=== PATIENT | female | born 1955 | race Two or more races ===

== ENCOUNTER → 2018-02-02 | Emergency (ER) | payer OTHER ==
[~2018-02-02] VITALS: Ht 160 cm; Wt 59.0 kg
[~2018-02-02] MED LIST: CIPRO500 MG PO; CLONAZEPAM1 MG; EFFEXOR XR75 MG; FLAGYL500MG PO; IMITREX100 MG; INTESTINEX1 CA1 PO; LISINOPRIL5 MG; LORAZEPAM1 MG; METFORMIN HCL500 MG; PROTONIX20 MG; RANITIDINE HCL300 MG; SEROQUEL200 MG
== END | disposition home or self-care (01) ==
LOC: ER 14:07
DX: K57.30 Diverticulosis of large intestine without perforation or abscess without bleeding (principal); R10.32 Left lower quadrant pain

== ENCOUNTER 2019-02-10 08:55 | Outpatient (CLI) | payer OTHER | END 2019-02-10 09:08 | disposition home or self-care (01) | LOC: TOM 08:55 | DX: K56.600 Partial intestinal obstruction, unspecified as to cause (principal) ==

== ENCOUNTER → 2020-08-10 | Outpatient (CLI) | payer OTHER | END | disposition home or self-care (01) | LOC: MRI 08:36 | PROVIDERS: ATTEND Surgery | DX: R10.30 Lower abdominal pain, unspecified (principal); R19.4 Change in bowel habit; R19.5 Other fecal abnormalities | CPT/HCPCS: 72197; A9575 ==

== ENCOUNTER → 2020-08-18 10:53 | Outpatient (CLI) | payer OTHER | END | disposition home or self-care (01) | LOC: LAB 10:53 | PROVIDERS: ATTEND Internal Medicine Hematology & Oncology | DX: D50.8 Other iron deficiency anemias (principal); I10 Essential (primary) hypertension; D55.0 Anemia due to glucose-6-phosphate dehydrogenase [G6PD] deficiency; C56.9 Malignant neoplasm of unspecified ovary; R97.8 Other abnormal tumor markers; R97.1 Elevated cancer antigen 125 [CA 125]; R97.0 Elevated carcinoembryonic antigen [CEA]; D63.1 Anemia in chronic kidney disease; E03.8 Other specified hypothyroidism; F33.1 Major depressive disorder, recurrent, moderate; K66.0 Peritoneal adhesions (postprocedural) (postinfection) ==